=== PATIENT | male | born 1995 | race Two or more races ===

== ENCOUNTER → 2021-01-01 12:05 | Outpatient (CLI) | payer OTHER, BC ==
[2020-08-28 13:49] VITALS: BMI 34.2
[~2021-01-01 12:05] MED LIST: FLUTICASONE PRO16 GM NASAL; MELATONIN 3 MG1 TAB PO; MUCINEX600 MG PO; PREDNISONE10 MG PO; PULMICORT0.5 MG/21 UPD; TESSALON PERLE100 MG PO; VITAMIN B-1100 M1 PO; VITAMIN C PO; VITAMIN D325 MC1 PO; ZINC-220220 MG PO
== END | disposition home or self-care (01) ==
LOC: D.LAB 12:05
PROVIDERS: ATTEND Nurse Practitioner Family
DX: R06.09 Other forms of dyspnea (principal)

== ENCOUNTER → 2021-01-07 07:55 | Outpatient (CLI) | payer OTHER, BC ==
[2020-08-28 13:49] VITALS: BMI 34.2
== END | disposition home or self-care (01) ==
LOC: D.RT 07:55
PROVIDERS: ATTEND Nurse Practitioner Family
DX: R06.09 Other forms of dyspnea (principal)